=== PATIENT | male | born 1950 | race Caucasian/White ===

== ENCOUNTER 2025-01-01 06:00 | Day surgery (SDC) | payer MEDICARE, OTHER ==
[~2025-01-01 06:00] MED LIST: Sodium Chloride 0.9% 10 ML Syringe FLUSH PRN; Sodium Chloride 0.9% 10 ML Syringe FLUSH SCH
[2025-01-01] MEDS ORDERED: Propofol 200 MG/20 ML SDV ONE (06:20)
[2025-01-01] MEDS ORDERED: fentaNYL 100 MCG/2 ML SDV ONE (06:20)
[2025-01-01] MEDS ORDERED: Midazolam 1 MG/ML 2 ML SDV ONE (06:21)
[2025-01-01] MEDS: Lactated Ringers 1,000 ML IV SCH (06:25)
== END 2025-01-01 07:55 | disposition home or self-care (01) ==
LOC: JD.SDS 06:00
PROVIDERS: ATTEND Orthopaedic Surgery
DX: G56.01 Carpal tunnel syndrome, right upper limb (principal); E03.9 Hypothyroidism, unspecified; E66.9 Obesity, unspecified; I10 Essential (primary) hypertension; Z88.2 Allergy status to sulfonamides; Z88.8 Allergy status to other drugs, medicaments and biological substances; Z68.34 Body mass index [BMI] 34.0-34.9, adult; Z79.899 Other long term (current) drug therapy; Z79.890 Hormone replacement therapy
CPT/HCPCS: J0665; J0690; J2003; J2250; J2704; J3010; J7120